=== PATIENT | female | born 1995 | race Caucasian/White ===

== ENCOUNTER → 2017-04-18 15:05 | Outpatient (CLI) | payer MEDICAID, SELFPAY ==
--- NOTE | 2017-04-18 15:09 | RAD_ITS ---
STUDY: X-RAY - LEFT FOOT CLINICAL: Fracture follow-up. TECHNIQUE: 3 view(s) of the foot. COMPARISON: Radiographs 01/24/2017. FINDINGS: Normal talus, calcaneus, and tarsal bones. Normal visualized subtalar, talonavicular, calcaneocuboid, tarsal and tarsometatarsal articulations. There is healed fracture deformity of the distal fifth metatarsal. Normal metatarsophalangeal joint of the great toe. Normal tibial and fibular sesamoid bones. Normal interphalangeal joint of the great toe. Normal phalanges of the great toe. Normal second through fifth metatarsophalangeal joints. Normal interphalangeal joints and phalanges of the lesser toes. The soft tissue structures are unremarkable. RAD/Foot min 3 Views IMPRESSION: Healed fracture deformity of the distal fifth metatarsal. Electronically Signed: Mahin Manrique MD at 15:53 EST Tel , Service support ,
== END ==
PROVIDERS: Visit Provider Orthopaedic Surgery
DX: S92.355D Nondisplaced fracture of fifth metatarsal bone, left foot, subsequent encounter for fracture with routine healing (principal); X58.XXXD Exposure to other specified factors, subsequent encounter
CPT/HCPCS: 73630

== ENCOUNTER 2018-01-31 00:13 | Emergency (ER) | payer MEDICAID, SELFPAY ==
[2018-01-31 00:14] VITALS: BP 111/69; PULSE 112; RESP 18; TEMP 36.8; O2SAT 99; BMI 34.0
--- NOTE | 2018-01-31 00:38 | RAD_ITS ---
STUDY: X-RAY CHEST REASON FOR EXAM: Female, 22 years old. Chest pain. TECHNIQUE: 2 views COMPARISON: None. FINDINGS: There is a right middle lobe consolidation consistent with a pneumonia. The left lung is clear. The heart is normal. There are no pleural effusions. Normal visualized thoracic spine. Normal visualized ribs, clavicles, and shoulders. There is no demonstrated abnormality of the visualized soft tissue structures of the upper abdomen. RAD/Chest PA and Lateral IMPRESSION: Right middle lobe pneumonia Electronically Signed: Lalo Jesus MD at 0:57 EST Tel , Service support ,
--- NOTE | 2018-01-31 00:38 | EKG12_ITS ---
Test Reason : CP Blood Pressure : / mmHG Vent. Rate : 111 BPM Atrial Rate : 111 BPM P-R Int : 132 ms QRS Dur : 088 ms QT Int : 332 ms P-R-T Axes : -02 -08 028 degrees QTc Int : 451 ms Sinus tachycardia Otherwise normal ECG Confirmed by MARILYN COLLAZO, MICA ([id number]), newspaper copy editor PATRIA PARRISH ([id number]) on 02/02/2018 2:29:33 PM Referred By: JASMIN Confirmed By:MICA SANDERS MD
[2018-01-31] MEDS: Ipratropium/Albuterol Sulfate 3 ML AMPUL.NEB INHALATION (01:11)
--- NOTE | 2018-01-31 01:13 | ED.DCSUM_ITS ---
- ER Visit Summary Date of Service: 01/31/18 Chief Complaint: Chest pain History of Present Illness: The patient is a 22 F who presents with chest pain. It is been present for about 1 week. She complains of pain across her chest but its worst on the right side. It is sharp. It is worse with inspiration or movement. She was recently ill with an upper respiratory type infection with congestion rhinorrhea shortness of breath and cough. No fevers. No vomiting. No recent travel surgery or immobilization. No history of DVT or pulmonary embolism. Physical Examination: Afebrile heart rate 112 vitals otherwise normal respiratory rate 18 pulse ox 99% on room air Moist mucous membranes Heart is regular rhythm slightly tachycardic Patient is in no respiratory distress able to speak in full sentences no retractions or increased work of breathing. She does have scattered expiratory wheezing. I do not appreciate rales Abdomen soft Extremities nontender Alert Test Results: EKG shows sinus tachycardia at a rate of 111. Two-view chest x- ray shows a right middle lobe pneumonia. Emergency Department Course and Treatment: Patient was given a DuoNeb aerosol and first dose of azithromycin here. She is afebrile blood pressure temperature and pulse oximetry are normal and she has no comorbidities. She is slightly tachycardic. I do not believe she requires hospital admission. She will be given prescriptions for azithromycin, albuterol inhaler, naproxen for pain. She understands to return for new or worsening symptoms and was instructed on specific signs and symptoms to monitor for. Treatment Plan: [] Disposition: Discharge Impression: Community acquired pneumonia This note was generated with [employer] dictation software. It may contain incorrect words, spelling, and punctuation that were not noted in review of the chart prior to signing ED Disposition - Plan for ED Patient: Chief Complaint: Chest Other Referrals: Care Physician,No Primary [Primary Care Provider] -
--- NOTE | 2018-01-31 01:13 | ED.DEP ---
ED Disposition - Plan for ED Patient: Chief Complaint: Chest Other Instructions: ED Pneumonia Adult Prescriptions: Albuterol Inhaler [Ventolin Hfa] 1 - 2 puff INHALATION Q4H PRN PRN #1 inhaler PRN Reason: Wheezing Azithromycin [Zithromax] 250 mg PO DAILY #4 tab Naproxen [Naprosyn] 500 mg PO BID #20 tab Referrals: Care Physician,No Primary [Primary Care Provider] - Rachelle Humphries DO [STAFF PHYSICIAN] -
[2018-01-31 01:14] VITALS: PULSE 104; RESP 18
[2018-01-31] MEDS: Azithromycin 250 MG Tablet 500 MG PO (01:21)
[2018-01-31 01:22] VITALS: PULSE 110; RESP 20; O2SAT 100
== END 2018-01-31 01:22 | disposition home or self-care (01) ==
PROVIDERS: Emergency Provider Emergency Medicine
DX: J18.9 Pneumonia, unspecified organism (principal); Z72.0 Tobacco use
CPT/HCPCS: 71046; 93005; 94640; 99283

== ENCOUNTER 2018-05-18 07:12 | Emergency (ER) | payer MEDICAID, SELFPAY ==
[2018-05-18 07:13] VITALS: BP 126/84; PULSE 91; RESP 16; TEMP 36.3; O2SAT 98; BMI 32.9
--- NOTE | 2018-05-18 07:32 | ED.DCSUM_ITS ---
- ER Visit Summary Date of Service: 05/18/18 Chief Complaint: Abdominal pain History of Present Illness: The patient is a 23 F with a 3-month history of intermittent upper abdominal pain. She states she wakes early in the morning with upper abdominal pain. She often will have nausea and vomiting of incomp letely digested food from the prior evening. She denies fever or chills. She denies diarrhea or constipation. She states she occasionally take Pepcid but not really sure if that helps or not. Patient just completed her menstrual cycle denies possibility of . Physical Examination: Vital signs unremarkable. Patient sitting upright in bed no acute distress. Head neck examination unremarkable. Heart is regular rate and rhythm. Lung sounds are clear. Abdomen is soft with tenderness in the epigastrium. No guarding or rebound. Active bowel sounds are noted. Test Results: CBC and chemistry studies normal. LFTs and lipase normal. Emergency Department Course and Treatment: Patient was given p.o. Protonix. Test results discussed with the patient. I suspect she has gastritis and reflux. She will be given a prescription for Prevacid. She is referred to Dr. Ramirez for follow-up, next on the no doc list. Treatment Plan: [] Disposition: Discharge Impression: Gastritis This note was generated with [employer] dictation software. It may contain incorrect words, spelling, and punctuation that were not noted in review of the chart prior to signing ED Disposition - Plan for ED Patient: Referrals: Care Physician,No Primary [Primary Care Provider] -
[2018-05-18] MEDS: Pantoprazole Sodium 20 MG Tablet PO (07:36)
[2018-05-18 08:03] LABS: Absolute Lymphocyte Count 2.23 X10^3/ul (0.83-4.51); Absolute Neutrophil Count 2.7 X10^3/uL (2.0-7.7); Basophil# 0.01 X10^3/uL; Basophil% 0.2 % (0-1); Eosinophil# 0.04 X10^3/uL; Eosinophils% 0.8 % (0-5); Hematocrit 39.1 % (37-47); Hemoglobin 13.6 g/dl (12.0-15.0); Lymphocyte # 2.23 X10^3/ul (4.0); Lymphocyte % 41.9 % (19-41); Mean Corp Hgb Conc 34.8 g/gl (32-36); Mean Corpuscular Hgb 31.6 pg (27.0-32.0); Mean Corpuscular Volume 90.7 fL (81-99); Mean Platelet Vol. 9.9 fl (6.2-12.0); Monocyte% 5.6 % (0-10); Neutrophil # 2.73 X10^3/uL (2.7-7.7); Neutrophil % 51.3 % (47-70); Platelet Count 265 K/mm3 (150-450); RBC Distribution Width CV 12.4 % (11.6-14.6); RBC Distribution Width SD 41.5 fl (35.1-43.9); Red Blood Count 4.31 M/mm3 (4.2-5.4); White Blood Count 5.3 K/mm3 (4.4-11.0)
[2018-05-18 08:04] LABS: POSITIVE COUNT NO; POSITIVE DIFFERENTIAL NO; POSITIVE MORPHOLOGY NO
[2018-05-18 08:16] LABS: AST(SGOT) 13 U/L (15-37); Alanine Aminotransfer ALT/SGPT 22 U/L (13-56); Albumin, Serum 3.7 g/dL (3.2-5.0); Alkaline Phosphatase 69 U/L (45-117); Anion Gap 8 (5-15); BUN 11 mg/dL (7-18); BUN/Creat Ratio 14.8 RATIO (10-20); Bilirubin, Direct 0.11 mg/dL (0.00-0.30); Calcium,Total 8.7 mg/dL (8.5-10.1); Chloride 106 mmol/L (98-107); Creatinine, Serum 0.74 mg/dL (0.55-1.02); EST Glomerular Filtration Rate 105 mL/min (>60); Est Glom Filt Rate - Afr Amer 127 mL/min (>60); Estimated Creatinine Clearance 108.21 ml/min; Glucose 99 mg/dL (74-106); Lipase 178 U/L (73-393); Potassium 3.5 mmol/L (3.5-5.1); Protein, Total 6.7 g/dL (6.4-8.2); Sodium Level 141 mmol/L (136-145)
--- NOTE | 2018-05-18 09:00 | ED.DEP ---
ED Disposition - Plan for ED Patient: Disposition: Home or Assisted Living Instructions: ED PUD Vs Gastritis Prescriptions: Lansoprazole [Prevacid] 30 mg PO DAILY #30 capsule Referrals: Terri Ramirez MD [COURTESY STAFF PHYSICIAN] - As Needed
== END 2018-05-18 09:39 | disposition home or self-care (01) ==
PROVIDERS: Emergency Provider Emergency Medicine
DX: K29.70 Gastritis, unspecified, without bleeding (principal); Z72.0 Tobacco use
CPT/HCPCS: 80048; 80076; 83690; 85025; 99282

== ENCOUNTER 2018-08-27 19:10 | Observation (INO) | payer MEDICAID, SELFPAY ==
[2018-08-27 19:11] VITALS: BP 125/75; PULSE 75; RESP 16; TEMP 36.8; O2SAT 99; BMI 29.2
--- NOTE | 2018-08-27 20:32 | US_ITS ---
STUDY: ABDOMINAL ULTRASOUND - RIGHT UPPER QUADRANT REASON FOR VISIT: Female, 23 years old. Right upper quadrant pain TECHNIQUE: Ultrasound evaluation of the right upper quadrant was performed with real-time and static chirinos-scale imaging. TECHNICAL QUALITY: Adequate. COMPARISON: None. FINDINGS: Liver: The liver measures 17 cm. There is normal echogenicity of the liver. The bile ducts are within normal limits. There is hepatic color flow. The direction of portal flow is hepatopetal. There is no demonstrated mass lesion. Gallbladder: The gallbladder contains gallstones. The gallbladder wall measures 3 mm. Trace pericholecystic fluid is present. Clancy's sign is reported as positive. Common Bile Duct (C.B.D.): The common bile duct measures 3 mm. Pancreas: Normal size of the head, body and tail of the pancreas. There is normal echogenicity of the pancreas. There is no demonstrated pancreatic mass or cyst. Right Kidney: Normal size of the right kidney. The right kidney measures 11 cm. Normal renal cortex. There is no demonstrated renal mass or cyst. There is no right hydronephrosis. US/Gallbladder IMPRESSION: Gallstones as well as trace pericholecystic fluid with reported positive Clancy's sign, although gallbladder wall thickness is normal. Findings could represent mild cholecystitis in appropriate clinical context. Clinical correlation is suggested. Electronically Signed: Ian Vitale, at 21:28 EDT Tel , Service support ,
[2018-08-27] MEDS: Ondansetron 4 MG/2 ML Vial IV (20:50)
[2018-08-27] MEDS: 0.9% Normal Saline 1,000 ML 125 ML IV (20:50)
[2018-08-27 21:00] LABS: Bacteria 0 SEEN /hpf (None Seen); Mucous, Urine 0 SEEN /hpf (<or=2+); Red Blood Cells-Urine 0 SEEN /hpf (0-5); White Blood Cells 0 SEEN /hpf (0-5)
[2018-08-27 21:05] LABS: Color, Urine Yellow (Yellow); Glucose, Dipstick Normal (Normal); Ketone-Dipstick Negative (Negative); Leukocyte Esterase-Dipstick Negative /ul (Negative); Nitrite-Dipstick Negative (Negative); Occult Blood-Urine Negative /ul (Negative); Protein-Dipstick Negative (Negative); Specific Gravity, Urine 1.015 (1.002-1.030); Urine Bilirubin Dipstick Negative (Negative); Urine Clarity Cloudy (Clear); Urine Urobilinogen Normal (Normal)
[2018-08-27 21:09] LABS: Absolute Neutrophil Count 5.7 X10^3/uL (2.0-7.7); Basophil# 0.03 X10^3/uL; Basophil% 0.3 % (0-1); Eosinophil# 0.09 X10^3/uL; Hematocrit 40.7 % (37-47); Hemoglobin 14.3 g/dl (12.0-15.0); Lymphocyte % 28.5 % (19-41); Mean Corp Hgb Conc 35.1 g/gl (32-36); Mean Corpuscular Hgb 32.1 pg (27.0-32.0); Mean Corpuscular Volume 91.5 fL (81-99); Mean Platelet Vol. 10.4 fl (6.2-12.0); Monocyte# 0.69 X10^3/uL; Monocyte% 7.6 % (0-10); Neutrophil % 62.5 % (47-70); Platelet Count 303 K/mm3 (150-450); RBC Distribution Width CV 12.5 % (11.6-14.6); RBC Distribution Width SD 42.1 fl (35.1-43.9); Red Blood Count 4.45 M/mm3 (4.2-5.4); White Blood Count 9.1 K/mm3 (4.4-11.0)
[2018-08-27 21:10] VITALS: BP 124/72; PULSE 76; RESP 19; O2SAT 98
[2018-08-27 21:11] LABS: POSITIVE COUNT NO; POSITIVE DIFFERENTIAL NO; POSITIVE MORPHOLOGY NO
[2018-08-27 21:14] LABS: Internal QC Validated? YES +Cl - CLEAR BKGD
[2018-08-27 21:15] LABS: Pregnancy, Serum, hCG Quali. NEGATIVE Negative
[2018-08-27 21:21] LABS: ALB/GLOB Ratio 1.4 RATIO (0.9-2.4); AST(SGOT) 7 U/L (15-37); Alanine Aminotransfer ALT/SGPT 17 U/L (13-56); Albumin, Serum 4.4 g/dL (3.2-5.0); Alkaline Phosphatase 68 U/L (45-117); Anion Gap 5 (5-15); BUN 14 mg/dL (7-18); BUN/Creat Ratio 11.8 RATIO (10-20); Calcium,Total 9.5 mg/dL (8.5-10.1); Chloride 104 mmol/L (98-107); Creatinine, Serum 1.19 mg/dL (0.55-1.02); EST Glomerular Filtration Rate 61 mL/min (>60); Est Glom Filt Rate - Afr Amer 73 mL/min (>60); Estimated Creatinine Clearance 64.58 ml/min; Globulin 3.2 g/dL (2.2-4.2); Glucose 105 mg/dL (74-106); Lipase 113 U/L (73-393); Potassium 3.8 mmol/L (3.5-5.1); Protein, Total 7.6 g/dL (6.4-8.2); Sodium Level 138 mmol/L (136-145)
[2018-08-27 21:31] LABS: Amorphous Sediment 3+ PHOS; Squamous Epithelial Cells - UA 0-5 SEEN /hpf (5-10)
[2018-08-27] MEDS: HYDROmorphone 1 MG/ML Syringe IV (22:23)
--- NOTE | 2018-08-27 22:25 | ED.DCSUM_ITS ---
- ER Visit Summary Date of Service: 08/27/18 Chief Complaint: [Abdominal pain] History of Present Illness: The patient is a 23 F [emergency room with abdominal pain that started initially about 7 months ago. States that the pains been off and on. Department about 2 months ago and had lab work-up and it was believed she may have GERD or peptic ulcer disease therefore was started on Prevacid. Patient states that despite the Prevacid she continued to have pain especially after eating. Patient describes the pain is right upper quadrant and radiating to her back. Patient's had intermittent nausea and vomiting associated with this. Patient denies any fevers. Patient has no medical history. Patient has no prior surgical history.] Physical Examination: [HEENT-PERRLA, EOMI. Cranial nerves II through XII grossly intact. TMs clear. Mucous membranes moist. No adenopathy. Cardiovascular-regular rate and rhythm without murmur or ectopy Lungs-clear to auscultation, chest wall stable without crepitus or subcu emphysema Abdomen-normoactive bowel sounds, soft. She has tenderness to palpation over the right upper quadrant with positive Clancy sign. There is no rebound, rigidity, cranial signs. Extremities-intact ?4, normal range of motion, normal pulses, atraumatic] Test Results: [CBC with differential obtained was unremarkable. Chemistries unremarkable. LFTs were normal. Urinalysis normal. hCG was negative. Gallbladder ultrasound obtained showed mild cholecystitis given that she had gallstones and trace pericholecystic fluid as well as a positive Clancy sign.] Emergency Department Course and Treatment: [The patient was given Zofran for nausea as she did not anything for pain however subsequently she developed worsening pain and was requesting pain medication. Patient was medicated with Dilaudid 1 mg IV. Patient case was discussed with general surgeon on-call for the [facility] as patient is a [facility] patient and would like to remain within the system. Dr. Virk will present to the ER to evaluate patient for admission and possible surgical intervention.] Treatment Plan: [Admit] Disposition: [Admit] Impression: [Abdominal pain Cholecystitis] This note was generated with [employer] software. It may contain incorrect words, spelling, and punctuation that were not noted in review of the chart prior to signing ED Disposition - Plan for ED Patient: Referrals: Care Physician,No Primary [Primary Care Provider] -
--- NOTE | 2018-08-27 22:46 | HP.PCM_ITS ---
History of Present Illness Date of Admission: 08/27/18 Chief Complaint: RUQ PAIN The patient is a 23 year old F with episodic RUQ pain since January. She presented 2 months prior, told likely PUD, started on PPI's no improvement. She ate a meatball sub Monday night and awoke at 2am with severe RUQ pain. Pain persisted. She presented to [facility] ER - U/s Cholelithiasis Past Medical History Allergies No Known Allergies Allergy (Verified 08/27/18 19:13) Home Medications: Ambulatory Orders Medication Instructions Recorded Lansoprazole [Prevacid] 30 mg PO DAILY #30 capsule 05/18/18 Surgical History: no surgical history Psychiatric History: No pertinent psych hx SCULPTURE INSTRUCTOR History: No pertinent SCULPTURE INSTRUCTOR history Smoking Status: Current every day smoker Alcohol: Occasional Review of Systems Constitutional: Denies: Chills, Fever, Weight Change HEENT: Denies: Head Aches, Sinus Congestion, Sinus Drainage Cardiovascular: Denies: Chest Pain, Palpitations Respiratory: Denies: Cough, Shortness of breath at rest, Sputum production Gastrointestinal: Reports: Abdominal Pain. Denies: Nausea, Vomiting Genitourinary: Denies: Dysuria Musculoskeletal: Denies: Joint Pain, Joint Tenderness Skin: Denies: Rash, Wounds Neurological: Denies: Numbness, Tingling, Focal weakness Psychiatric: Denies: Anxiety, Depression, Homicidal Ideations, Suicidal Ideations Hematologic/ Lymphatic: Denies: Easy Bruising, Easy Bleeding VTE Information - Inpt Only VTE Present on Admission: No VTE Mechan Device Prophylaxis: SCD's - Physical Exam General: Alert, Oriented x3, Cooperative HEENT: Atraumatic, PERRLA, EOMI, Normocephalic Neck: Supple, No JVD, Negative Carotid Bruits Lungs: Clear to auscultation, Normal air movement Cardiovascular: Regular rate, No murmurs Abdomen: Bowel Sounds Present, Soft, Tender - RUQ Extremities: No edema, Capillary Refill Less than 3 Seconds Skin: No rashes, No breakdown Musculoskeletal: No Tenderness to Palpation of Joints or Extremities Neurological: Cranial nerves II-XII grossly intact Psych/Mental Status: Normal Affect, Appropriate Vital Signs Temp Pulse Resp BP Pulse Ox 98.2 F 76 19 H 124/72 H 98 08/27/18 19:11 08/27/18 21:10 08/27/18 21:10 08/27/18 21:10 08/27/18 21:10 Oxygen Delivery Method Room Air Weight: 77.111 kg Body Mass Index (BMI) 29.2 Laboratory Tests Past 24 Hrs 08/27/18 08/27/18 08/27/18 20:50 20:50 20:50 WBC 9.1 RBC 4.45 Hgb 14.3 Hct 40.7 MCV 91.5 MCH 32.1 H MCHC 35.1 RDW 12.5 RDW Differential 42.1 Plt Count 303 MPV 10.4 Immature Gran % (Auto) 0.100 Neut % (Auto) 62.5 Lymph % (Auto) 28.5 [place] % (Auto) 7.6 Eos % (Auto) 1.0 Baso % (Auto) 0.3 Absolute Neuts (auto) 5.7 Absolute Lymphs (auto) 2.60 Total Counted Not Reportable Sodium 138 Potassium 3.8 Chloride 104 Carbon Dioxide 29.0 Anion Gap 5 BUN 14 Creatinine 1.19 H Estim Creat Clear Calc 64.58 Est GFR (MDRD) Af Amer 73 Est GFR (MDRD) Non-Af 61 BUN/Creatinine Ratio 11.8 Glucose 105 Calcium 9.5 Total Bilirubin 0.30 AST 7 L ALT 17 Alkaline Phosphatase 68 Total Protein 7.6 Albumin 4.4 Globulin 3.2 Albumin/Globulin Ratio 1.4 Lipase 113 Serum , Qual NEGATIVE Urine Color Urine Clarity Urine pH Ur Specific [place] Urine Protein Urine Glucose (UA) Urine Ketones Urine Occult Blood Urine Nitrite Urine Bilirubin Urine Urobilinogen Ur Leukocyte Esterase Urine RBC Urine WBC Ur Squamous Epith Cells Amorphous Sediment Urine Bacteria Urine Mucus 08/27/18 20:50 WBC RBC Hgb Hct MCV MCH MCHC RDW RDW Differential Plt Count MPV Immature Gran % (Auto) Neut % (Auto) Lymph % (Auto) [place] % (Auto) Eos % (Auto) Baso % (Auto) Absolute Neuts (auto) Absolute Lymphs (auto) Total Counted Sodium Potassium Chloride Carbon Dioxide Anion Gap BUN Creatinine Estim Creat Clear Calc Est GFR (MDRD) Af Amer Est GFR (MDRD) Non-Af BUN/Creatinine Ratio Glucose Calcium Total Bilirubin AST ALT Alkaline Phosphatase Total Protein Albumin Globulin Albumin/Globulin Ratio Lipase Serum , Qual Urine Color Yellow Urine Clarity Cloudy Urine pH 7.0 Ur Specific [place] 1.015 Urine Protein Negative Urine Glucose (UA) Normal Urine Ketones Negative Urine Occult Blood Negative Urine Nitrite Negative Urine Bilirubin Negative Urine Urobilinogen Normal Ur Leukocyte Esterase Negative Urine RBC 0 SEEN Urine WBC 0 SEEN Ur Squamous Epith Cells 0-5 SEEN Amorphous Sediment 3+ PHOS Urine Bacteria 0 SEEN Urine Mucus 0 SEEN Assessment/Plan All Active Problems (Last Reviewed 04/18/17 @ 15:07 by Jagruti Khoury) Nondisplaced fracture of fifth metatarsal bone, left foot, subsequent encounter for fracture with routine healing (Acute) Cholecystitis Admit patient for pain control Plan for laparoscopic cholecystectomy with intraoperative cholangiogram. The risks, benefits, possible complications and alternatives were discussed. The patient consents to planned surgical procedure.
[2018-08-27] MEDS: Morphine 4 MG/ML Syringe IV (23:42)
[2018-08-27] MEDS: Lactated Ringers 1,000 ML 70 ML IV (23:42)
[2018-08-27 23:46] VITALS: BMI 25.7
[2018-08-27 23:47] VITALS: BP 132/82; PULSE 55; RESP 18; TEMP 36.6; O2SAT 97
[2018-08-27 23:56] VITALS: BMI 25.7
[2018-08-28] VITALS (10 sets, daily range): BP systolic 96–123; BP diastolic 66–81; PULSE 58–84; RESP 14–18; TEMP 36.4–36.7; O2SAT 94–100; BMI 25.9
--- NOTE | 2018-08-28 | GALL_PTH ---
PATIENT: ORLIN ROSALES LOC: MS3 U#:[id number] AGE/SX: 23/F ROOM: MS322 RE08/27/[address]: Dr. Jony Fisher MD : 1995 BED: 1 DIS: 08/28/2018 SPEC #: [id number] RECD: 08/28/18 13:59 STATUS: ALFONZO REStefani #: [id number] DREW: 08/28/18 00:[address]: Jony Fisher DEPT: SURGICAL PATHOLOGY RECD BY: Jimenez Alfaro ENTERED: 08/28/18 13:59 SP TYPE: KHADIJAH BLANTON DR: No Primary Care Phys Tissues: Gallbladder, NOS Procedures: Surgery Specimen Level III HEADER OPERATION: Laparoscopic cholecystectomy with IOC PRE-OP DIAGNOSIS: Cholecystitis TISSUE SUBMITTED: Gallbladder MICROSCOPIC DIAGNOSIS Gallbladder, cholecystectomy: Chronic cholecystitis and cholelithiasis. AM:tolu 08/29/18 MICROSCOPIC DESCRIPTION Slides are reviewed. GROSS DESCRIPTION Received is one container labeled with the patient's name and designated gallbladder. The specimen consists of a gallbladder measuring 10.5 x 3.5 x 2 cm. The external surface is smooth and glistening. Focally, it is granular, hemorrhagic and contains cautery artifact. The lumen of the gallbladder contains yellow-green mucoid bile and multiple yellow mulberry-shaped calculi averaging 7 mm each. The mucosa is reddish-oscar in color. The gallbladder wall averages 0.5 cm in thickness and is free of mass lesions. Wire Border Assembler sections of the gallbladder and the cystic duct are submitted in one cassette. / AM:tolu 08/28/18 TC:3 CPT: 70681
[2018-08-28] MEDS: Morphine 4 MG/ML Syringe IV ×2 (02:34→08:48)
[2018-08-28] MEDS: oxyCODONE 5 MG Tablet PO ×2 (03:02→13:59)
--- NOTE | 2018-08-28 05:00 | EKG12_ITS ---
Test Reason : AM EKG Blood Pressure : / mmHG Vent. Rate : 054 BPM Atrial Rate : 054 BPM P-R Int : 122 ms QRS Dur : 092 ms QT Int : 400 ms P-R-T Axes : -05 006 017 degrees QTc Int : 379 ms Sinus bradycardia Nonspecific T wave abnormality Poor R- wave progression Abnormal ECG Confirmed by TRINA COLLAZO, RYAN ([id number]), editorial specialist VIRGIL QUINTERO ([id number]) on 08/29/2018 12:43:01 PM Referred By: Jony Fisher Confirmed By:RYAN MENA MD
[2018-08-28 06:28] LABS: Absolute Lymphocyte Count 2.54 X10^3/ul (0.83-4.51); Absolute Neutrophil Count 4.1 X10^3/uL (2.0-7.7); Basophil# 0.02 X10^3/uL; Basophil% 0.3 % (0-1); Eosinophils% 1.4 % (0-5); Hematocrit 37.2 % (37-47); Hemoglobin 12.9 g/dl (12.0-15.0); Lymphocyte # 2.54 X10^3/ul (4.0); Lymphocyte % 34.8 % (19-41); Mean Corp Hgb Conc 34.7 g/gl (32-36); Mean Corpuscular Hgb 31.5 pg (27.0-32.0); Mean Platelet Vol. 10.3 fl (6.2-12.0); Monocyte# 0.53 X10^3/uL; Monocyte% 7.3 % (0-10); Neutrophil # 4.09 X10^3/uL (2.7-7.7); Neutrophil % 56.1 % (47-70); Platelet Count 242 K/mm3 (150-450); RBC Distribution Width CV 12.3 % (11.6-14.6); RBC Distribution Width SD 40.5 fl (35.1-43.9); Red Blood Count 4.09 M/mm3 (4.2-5.4); White Blood Count 7.3 K/mm3 (4.4-11.0)
[2018-08-28 06:30] LABS: POSITIVE COUNT NO; POSITIVE DIFFERENTIAL NO; POSITIVE MORPHOLOGY NO
--- NOTE | 2018-08-28 06:30 | RAD_ITS ---
STUDY: INTRAOPERATIVE CHOLANGIOGRAM. REASON FOR EXAM: Female, 23 years old. Cholecystitis. FLUOROSCOPY TIME (if supplied): (0:13) minutes/seconds. Intraoperative cine loop was submitted. TECHNIQUE: An intraoperative cholangiogram was performed by the surgeon. Imaging was submitted. COMPARISON: None. FINDINGS: The common bile duct is not dilated. No intraluminal filling defect is seen. There is free flow of contrast into the duodenum. RAD/Cholangiogram/ O R,Initial IMPRESSION: Unremarkable intraoperative cholangiogram. Electronically Signed: dA De La Rosa, at 15:26 EDT , Service support ,
[2018-08-28 06:51] LABS: AST(SGOT) 10 U/L (15-37); Alanine Aminotransfer ALT/SGPT 15 U/L (13-56); Albumin, Serum 3.5 g/dL (3.2-5.0); Alkaline Phosphatase 55 U/L (45-117); Bilirubin, Direct 0.09 mg/dL (0.00-0.30); Globulin 2.5 g/dL (2.2-4.2)
[2018-08-28] MEDS: Lactated Ringers 1,000 ML 70 ML IV (08:48)
[2018-08-28] MEDS: 0.9% NaCl Peripheral Flush Adult/Peds IV (08:48)
[2018-08-28] MEDS: Cefazolin 2 GM in 0.9% Normal Saline 100 ML IV (10:43)
[2018-08-28] MEDS: Bupivacaine Mpf 0.5% 30 ML VIAL (11:50)
--- NOTE | 2018-08-28 11:52 | DCINST_ITS ---
Discharge Diet: Light diet - advance as tolerated Discharge Activity: May Not Drive - for 2-3 days or while taking narcotic pain medications., - - Do not drive, work heavy equipment or sign legal documents for 24 hours. May shower in (days): 1 - with the bandage in place. Additional Activity Instructions:: Pain medication may cause nausea. You should typically eat light foods as you take your pain medications. Pain medication may also cause constipation. If this is a problem for you, please discuss with your doctor. Call your doctor if your incision/area has: Continuous Slow Oozing, Sudden Increased Bleeding, Increased Pain/ Swelling, Increased Redness, Foul Smelling Discharge Call your doctor if you observe: Fever of 101 or Higher Suture Line Care: Avoid Pulling/Pushing, Avoid Pinching/Bending Additional Dressing/Incision Instructions:: Leave operative bandaids on for 2 days. When you remove dressing, leave Steri-Strips on until your follow-up appointment, or until the Steri-Strips fall off on their own. Allergies/Adverse Reactions: Allergies No Known Allergies Allergy (Verified 08/27/18 19:13) Medications to take at Discharge Ranitidine [Zantac] 150 mg PO BID 08/27/18 Primary Care Physician: Care Physician,No Primary [Primary Care Provider] - Test Results: Test results from this visit will be discussed in further detail at your follow- up appointment, if applicable. Please Follow Up With: Jony Fisher MD - Please call [phone] to schedule an appointment. When: 7 days after your surgery
--- NOTE | 2018-08-28 11:53 | PCM.OPRPT ---
Report of Operation Date of Procedure: 08/28/18 Pre-Operative Diagnosis: cholecystitis Post-Operative Diagnosis: acute cholecystitis, normal IOC Surgery/Procedure Performed:: laparoscopic cholecystectomy with intraoperative cholangiogram roll up guider operator: Angie Bronson Type of Anesthesia:: General Anesthesiologist: Joshua Childers Specimen's removed: gallbladder Estimated Blood Loss (mL): 10 Fluids Replaced: 500 Description of Procedure: The patient was brought to the operating suite. Sign in was performed verifying patient, site, position, SCIP antibiotic prophylaxis- 2 gm of Ancef and DVT prophylaxis with SCDs. Following induction of general anesthetic. The patient?s abdomen was prepped and draped in the usual fashion. Timeout was performed verifying patient, site, position. Local anesthetic was injected below the umbilicus. Incision made and dissection carried down to the umbilical root fascia. 2 stay sutures were placed. Incision made in the fascia, the peritoneum entered under direct visualization. A 10 mm Bateman trocar was inserted and secured with the stay sutures. Pneumoperitoneum to 15 mmHg was insufflated. Visual inspection revealed I significantly distended edematous gallbladder. 3 right upper quadrant 5 ports were placed in the standard position. gallbladder was finally grasped easily so an aspirating needle used to aspirate the gallbladder partially to allow this to be grasped. The gallbladder was grasped retracted upward and outward. Dissection was carried out in Calot?s triangle. When a critical view of the neck of the gallbladder funneling of the cystic duct with no signs of aberrant ductal structures were seen, a clip was placed on the neck of the gallbladder cystic duct junction. A partial ductotomy was made. A Cholangiocath was inserted into the duct and secured with a clip. Intraoperative cholangiogram was performed demonstrating filling of the cystic duct filling the common bile duct and emptying into the duodenum without signs of obstruction area and the clip and catheter were removed. 2 clips placed on the cystic duct and the cystic duct divided. Dissection was continued until the cystic artery was clearly dissected and identified. The artery was then doubly clipped proximally singly clipped distally and divided. The gallbladder was then dissected free from the gallbladder fossa using electrocautery. The gallbladder was placed in an Endobag and removed through the umbilical port site. An 0 PDS [id number] suture was placed around the umbilical port site defect. Pneumoperitoneum was reestablished. The gallbladder fossa was checked for hemostasis. With good hemostasis, the area was irrigated and aspirated to clear. 5mm ports were removed under direct visualization with no signs of bleeding. Pneumoperitoneum was released. The Bateman trocar was removed. The umbilical fascial suture was secured area did skin was closed with interrupted 4-0 Monocryl subcuticular sutures. Steri-Strips and bandages were applied. The patient was brought to recovery room in stable condition. - Admit VTE Documentation VTE Present on Admission: No VTE Mechan Device Prophylaxis: SCD's VTE Pharm Prophylaxis ordered?: No
== END 2018-08-28 17:00 | disposition home or self-care (01) ==
LOC: ED 22:20 → MS3 23:17
PROVIDERS: Admitting Provider Surgery; Emergency Provider Emergency Medicine; Referring Provider Surgery; Visit Provider Surgery
PROC: (CPT 47610; principal; 2018-08-28 10:10)
DX: K80.12 Calculus of gallbladder with acute and chronic cholecystitis without obstruction (principal); F17.200 Nicotine dependence, unspecified, uncomplicated; R94.31 Abnormal electrocardiogram [ECG] [EKG]; R00.1 Bradycardia, unspecified
CPT/HCPCS: 47563; 36415; 74300; 76000; 76705; 80053; 80076; 81001; 83690; 84703; 85025; 88304; 93005; 96361; 96374; 96375; 96376; 99218; 99284; 99406; J7030; J7120; A4216; G0378; J2405

== ENCOUNTER 2018-11-20 20:08 | Emergency (ER) | payer MEDICAID, SELFPAY ==
[2018-08-28 08:52] VITALS: BMI 25.9
[2018-11-20 20:14] VITALS: BP 99/80; PULSE 108; RESP 16; TEMP 36.4; O2SAT 100; BMI 30.4
[2018-11-20] MEDS: Ondansetron 4 MG/2 ML Vial IV (20:37)
[2018-11-20 20:46] VITALS: BP 109/71; PULSE 103; RESP 21; O2SAT 100
[2018-11-20] MEDS: proMETHazine 25 MG/ML Syringe 12.5 MG IV (23:02)
[2018-11-20 23:03] VITALS: BP 103/72; PULSE 70; RESP 14; O2SAT 99
--- NOTE | 2018-11-20 23:24 | ED.DCSUM_ITS ---
- ER Visit Summary Date of Service: 11/20/18 Chief Complaint: [Heroin overdose ] History of Present Illness: The patient is a 23 F [presents to the emergency department with EMS after overdosing on heroin. EMS noted that police on scene and found patient unresponsive and administered multiple doses of intranasal Narcan. On EMS arrival they were able to establish an IV and gave 1 more milligram of Narcan IV. On arrival to the emergency department patient admits to using heroin that she snorted. Patient states she is not a regular user. Patient does have history of illicit drug use in the past including marijuana and methamphetamines. She denies feeling suicidal or homicidal. She denies any hallucinations. She denies chest pain or shortness of breath. She does describe some nausea and did vomit on arrival the emergency department.] Physical Examination: [HEENT-PERRLA, EOMI. Cranial nerves II through XII grossly intact. TMs clear. Mucous membranes moist. No adenopathy. Cardiovascular-regular rate and rhythm without murmur or ectopy Lungs-clear to auscultation, chest wall stable without crepitus or subcu emphysema Abdomen-normoactive bowel sounds, soft, nontender, no rebound or rigidity, no peritoneal signs. Extremities-intact ?4, normal range of motion, normal pulses, atraumatic] Test Results: [Urine drug screen ordered however patient was unable to give a urine after several hours in the emergency department.] Emergency Department Course and Treatment: [After approximately 3 hours in the department patient had been monitored and observed and had no further respiratory depression. This point she feels back to her baseline. Patient was given information for drug treatment program at 180.] Treatment Plan: [Patient advised to discontinue drug use.] Disposition: [Discharged home stable condition.] Impression: [Heroin overdose] This note was generated with [employer] dictation software. It may contain incorrect words, spelling, and punctuation that were not noted in review of the chart prior to signing ED Disposition - Plan for ED Patient: Referrals: Care Physician,No Primary [Primary Care Provider] -
--- NOTE | 2018-11-20 23:29 | ED.DEP ---
ED Disposition - Plan for ED Patient: Instructions: Opiate Abuse, OVERDOSE, Opiate Referrals: Care Physician,No Primary [Primary Care Provider] - Luis E Hurtado MD [STAFF PHYSICIAN] - 3-5 Days
[2018-11-20 23:45] VITALS: BP 97/67; PULSE 87; RESP 16; O2SAT 100
== END 2018-11-20 23:46 | disposition home or self-care (01) ==
LOC: ED 20:34
PROVIDERS: Emergency Provider Emergency Medicine
DX: T40.1X1A Poisoning by heroin, accidental (unintentional), initial encounter (principal); Y92.9 Unspecified place or not applicable; Z72.0 Tobacco use
CPT/HCPCS: 96374; 96375; 99284; J7030; A4216; J2405

== ENCOUNTER 2018-12-26 22:56 | Emergency (ER) | payer MEDICAID, SELFPAY ==
[2018-12-26 22:57] VITALS: BP 99/86; PULSE 100; RESP 13; TEMP 36.6; O2SAT 95; BMI 31.6
--- NOTE | 2018-12-26 23:43 | ED.DCSUM_ITS ---
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 The details of events prior to hospital arrival and timing of drug ingestion are unknown. Initially patient is laughing and singing, grossly intoxicated. However upon initial evaluation she is crying and asking for her friend Darcy who is not present right now, stating that she refuses to talk to me until Darcy is here. 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 Denies: Abdominal pain Musculoskeletal: Denies: Neck pain, Back pain, Extremity Pain Skin: Denies: Rash, Abscess Neurological: Denies: Headache Psych: Reports: Anxiety Physical Exam Vital Signs/Narrative: Vital Signs Temp Pulse Resp BP Pulse Ox 12/26/18 22:57 97.8 F 100 13 99/86 H 95 Inital Vital Signs reviewed: Yes General: Well nourished, Well developed, Acute Distress - emotional Head: Normocephalic, Atraumatic Eyes: Perrl, EOMI - grossly; not following all commands ENT: Moist mucous membranes, No rhinorrhea, TM's clear, - - No hemotympanum, tavarez sign, CSF otorhinorrhea, signs of facial or other head trauma. Negative for: Sinus tenderness Cardiovascular: Regular rate, Regular rhythm, No murmurs Respiratory: No distress, CTA bilaterally, Chest nontender Abdomen: Soft, Nontender, Nondistended, Normal bowel sounds Back: Nontender Extremities: Nontender, No edema Skin: Normal color - Except for green discoloration of her chest and shoulders, her hair is dyed green and is long lying on these areas., No rash, No Trauma Neurological: Alert, Oriented x3 - knows she is in ER and knows her name; won't answer other questions at this time, Cranial nerves II-XII grossly intact, Normal Strength, Normal Sensation, - - able to walk, but intoxicated Psychological: Tearful, Agitated - occasionally walking to door, trying to leave and find Darcy Diagnostic/Tx/Re-eval Impressions Brain CT 12/27/18 00:05 IMPRESSION: There is mucoperiosteal inflammatory disease of the paranasal sinuses consistent with moderate chronic sinusitis. Electronically Signed: Fransico Garrison, at 1:52 EDT Tel , Service support , 12/27/18 00:05 CT Head [Brain/Head without Contrast] [CT] Stat Laboratory Results 12/26/18 12/26/18 12/27/18 23:10 23:10 01:00 WBC 6.2 RBC 4.27 Hgb 13.3 Hct 39.3 MCV 92.0 MCH 31.1 MCHC 33.8 RDW Std Deviation 41.7 RDW Coeff of Aly 12.4 Plt Count 253 MPV 9.9 Immature Gran % (Auto) 0.300 Neut % (Auto) 61.5 Lymph % (Auto) 31.6 Ware % (Auto) 3.2 Eos % (Auto) 2.6 Baso % (Auto) 0.8 Absolute Neuts (auto) 3.8 Absolute Lymphs (auto) 1.96 Nucleated RBC % 0 Sodium Potassium Chloride Carbon Dioxide Anion Gap BUN Creatinine Estim Creat Clear Calc Est GFR (MDRD) Af Amer Est GFR (MDRD) Non-Af BUN/Creatinine Ratio Glucose Calcium Urine Color Straw Urine Clarity Clear Urine pH 7.0 Ur Specific Hamlin 1.010 Urine Protein Negative Urine Glucose (UA) Normal Urine Ketones Negative Urine Occult Blood Negative Urine Nitrite Negative Urine Bilirubin Negative Urine Urobilinogen Normal Ur Leukocyte Esterase Negative Urine RBC 0 SEEN Urine WBC 0 SEEN Ur Squamous Epith Cells 0-5 SEEN Urine Bacteria 0 SEEN Urine Mucus 0 SEEN Urine Test Negative Ethyl Alcohol 12/27/18 12/27/18 01:00 01:00 WBC RBC Hgb Hct MCV MCH MCHC RDW Std Deviation RDW Coeff of Aly Plt Count MPV Immature Gran % (Auto) Neut % (Auto) Lymph % (Auto) Ware % (Auto) Eos % (Auto) Baso % (Auto) Absolute Neuts (auto) Absolute Lymphs (auto) Nucleated RBC % Sodium 147 H Potassium 3.8 Chloride 115 H Carbon Dioxide 23.0 Anion Gap 9 BUN 5 L Creatinine 0.67 Estim Creat Clear Calc 109.87 Est GFR (MDRD) Af Amer 143 Est GFR (MDRD) Non-Af 118 BUN/Creatinine Ratio 7.5 L Glucose 89 Calcium 8.9 Urine Color Urine Clarity Urine pH Ur Specific Hamlin Urine Protein Urine Glucose (UA) Urine Ketones Urine Occult Blood Urine Nitrite Urine Bilirubin Urine Urobilinogen Ur Leukocyte Esterase Urine RBC Urine WBC Ur Squamous Epith Cells Urine Bacteria Urine Mucus Urine Test Ethyl Alcohol 190.0 - Medical Decision Making Initially patient was able to be redirected and stay in bed, but then she got up and ran out of the room down the hallway and had to be physically restrained by security, with nursing assistance was brought back to the room, yelling screaming, swinging at nurses and security. Therefore to protect staff, she was restrained. As we were physically restraining her, she continued to spit, attempt to bite nursing, and swing at them. For this reason she was given Geodon 20 mg for her own and staff protection. I suspect the patient is just extremely intoxicated. There are no signs of head trauma. Since we will be unable to safely monitor her clinical condition to resolution if she is just intoxicated, because we are having to sedate her, other testing will be obtained in order to rule out acute life-threatening pathology. Patient was given Geodon, as above. Initially it did not think she continued screaming at staff directly, screaming out loud in general, and being generally agitated so we left her restrained. Eventually she settled down, she was acting much more reasonable with staff, so we gave her a trial out of restraints and she actually did very well and then continued to sleep. Several family members called. Her mother, asked about her, but did not want to come get her. Her sister called and wanted to come get her, we told her that she could at one point but she never showed up. A gentleman who claimed to be her cousin came and spoke with her for a little while, advised staff that he would come back in the morning to pick her up if that was okay. Plan is to observe her. Work-up was unremarkable and her alcohol is 190. She is a little hyponatremic, probably indicating that she could use some fluids from being intoxicated and vomiting. Patient was observed and did well. The gentleman did come to pick her up, however I was performing suturing with another patient and was unavailable when he arrived. When I finished, I was advised by nursing that they refused to wait for me and left together. She was oriented and no longer confused, ambulatory without ataxia. I certainly would have discharged her after evaluating her and finding the same clinical condition/improvement. It is notable that she left without her discharge papers, which would have provided follow-up information for addiction treatment and information on drug abuse. ED Disposition - Plan for ED Patient: Disposition: Home or Assisted Living Diagnosis: Alcohol intoxication delirium, acute, hyperactive, Heroin abuse Instructions: Understanding Heroin Abuse and Addiction, Alcohol Intoxication Referrals: Joy Maldonado [NON-STAFF] - [employer] [STAFF PHYSICIAN] -
[2018-12-26 23:51] LABS: Bacteria 0 SEEN /hpf (None Seen); Mucous, Urine 0 SEEN /hpf (<or=2+); Red Blood Cells-Urine 0 SEEN /hpf (0-5); White Blood Cells 0 SEEN /hpf (0-5)
[2018-12-26 23:53] LABS: Color, Urine Straw (Yellow); Glucose, Dipstick Normal (Normal); Ketone-Dipstick Negative (Negative); Leukocyte Esterase-Dipstick Negative /ul (Negative); Nitrite-Dipstick Negative (Negative); Occult Blood-Urine Negative /ul (Negative); Protein-Dipstick Negative (Negative); Urine Bilirubin Dipstick Negative (Negative); Urine Clarity Clear (Clear); Urine Urobilinogen Normal (Normal)
--- NOTE | 2018-12-26 23:53 | ED.RN ---
pt started getting dressed saying she was going home. RN entered room and asked pt to get into gown. PT refused and then started calling this RN a pedophile. PT eventually put gown on. PT can go home if she has a sober ride but she is unable to think of any phone numbers.
[2018-12-26 23:56] LABS: Internal QC Validated? YES +Cl - CLEAR BKGD; Pregnancy, Urine Negative Negative
--- NOTE | 2018-12-27 00:03 | ED.RN ---
CALLED MOTHER OF PT AT THE REQUEST OF THE PT, MOTHER DOES NOT WISH TO COME IN TO GET HER.
--- NOTE | 2018-12-27 00:04 | ED.RN ---
ATTEMPTED TO CALL A NUMBER FOR SISTER CANDIDO, , LEFT MESSAGE TO CALL THIS RN AT [facility], NO OTHER DETAILS GIVEN.
[2018-12-27] MEDS: Ziprasidone IM 20 MG/ML VIAL IM (00:05)
--- NOTE | 2018-12-27 00:05 | CT_ITS ---
STUDY: CT BRAIN WITHOUT CONTRAST REASON FOR EXAM: Female, 23 years old. Confusion RADIATION DOSAGE (If Supplied By Facility): CTDIvol = ( 44.99 ) mGy, DLP = ( 745.49 ) mGycm TECHNIQUE: Transaxial CT imaging of the brain was performed without administration of intravenous contrast material. Individualized dose optimization techniques were used for this CT. COMPARISON: No relevant priors. FINDINGS: Normal soft tissue structures. Normal calvarium. Normal size ventricles and extra-axial spaces for the patient's age. Normal white matter tracts of the cerebral hemispheres. Normal basal ganglia and thalami. Normal brainstem. Normal cerebellum. There is no intracranial hemorrhage. There are no findings of an acute ischemic infarction. There is mucoperiosteal inflammatory disease of the paranasal sinuses consistent with moderate chronic sinusitis. CT/Brain/Head without Contrast IMPRESSION: There is mucoperiosteal inflammatory disease of the paranasal sinuses consistent with moderate chronic sinusitis. Electronically Signed: Fransico Garrison, at 1:52 EDT Tel , Service support ,
[2018-12-27 00:08] LABS: Squamous Epithelial Cells - UA 0-5 SEEN /hpf (5-10)
[2018-12-27 00:18] VITALS: BP 108/89; PULSE 115; RESP 22; O2SAT 100
--- NOTE | 2018-12-27 00:19 | ED.RN ---
pt continues to scream in room. Attempted to redirect pt, unable. PTs sister Darcy is on her way here for sober ride home. We will reevaluate patients mental status when sister arrives.
--- NOTE | 2018-12-27 00:31 | ED.RN ---
2350 pt left room and was trying to leave. PT stopped around bed 17. Security Lam, myself and Rayshawn attempted de-escalation, redirection and emotional support but PT was continuing to verbally escalate, using obscenities, threatening harm toward staff. PT was brought back to her room and placed in 4-point restraints with MD at bedside. Geodon was ordered and given. PT kicking and attempted to bite this RN.
[2018-12-27 01:08] LABS: Absolute Lymphocyte Count 1.96 X10^3/uL (0.83-4.51); Absolute Neutrophil Count 3.8 X10^3/uL (2.0-7.7); Basophil# 0.05 X10^3/uL; Basophil% 0.8 % (0-1); Eosinophil# 0.16 X10^3/uL; Eosinophils% 2.6 % (0-5); Hematocrit 39.3 % (37-47); Hemoglobin 13.3 g/dL (12.0-15.0); Lymphocyte # 1.96 X10^3/ul (4.0); Lymphocyte % 31.6 % (19-41); Mean Corp Hgb Conc 33.8 g/dL (32-36); Mean Corpuscular Hgb 31.1 pg (27.0-32.0); Mean Platelet Vol. 9.9 fl (6.2-12.0); Monocyte% 3.2 % (0-10); NRBC Flagged by Analyzer 0 % (0-5); Neutrophil # 3.82 X10^3/uL (2.7-7.7); Neutrophil % 61.5 % (47-70); Platelet Count 253 K/mm3 (150-450); RBC Distribution Width CV 12.4 % (11.6-14.6); RBC Distribution Width SD 41.7 fl (35.1-43.9); Red Blood Count 4.27 M/mm3 (4.2-5.4); White Blood Count 6.2 K/mm3 (4.4-11.0)
[2018-12-27 01:12] VITALS: BP 104/73; PULSE 103; RESP 20; O2SAT 96
[2018-12-27 01:22] LABS: Anion Gap 9 (5-15); BUN 5 mg/dL (7-18); BUN/Creat Ratio 7.5 RATIO (10-20); Calcium,Total 8.9 mg/dL (8.5-10.1); Chloride 115 mmol/L (98-107); Creatinine, Serum 0.67 mg/dL (0.55-1.02); EST Glomerular Filtration Rate 118 mL/min (>60); Est Glom Filt Rate - Afr Amer 143 mL/min (>60); Estimated Creatinine Clearance 109.87 ml/min; Glucose 89 mg/dL (74-106); Potassium 3.8 mmol/L (3.5-5.1); Sodium Level 147 mmol/L (136-145)
[2018-12-27 02:47] VITALS: RESP 16
[2018-12-27 03:22] VITALS: PULSE 18
--- NOTE | 2018-12-27 04:20 | ED.RN ---
patients friend at the bedside to pickup driver patient at this time. Dr. Allen at this time would like to re eval patient at this time. Patient and friend do not want to stay any longer. Patient able to walk under own free while and able to answer questions at this time. Patient at this time left under own free while unwilling to wait any longer
== END 2018-12-27 04:20 | disposition home or self-care (01) ==
PROVIDERS: Emergency Provider Emergency Medicine
DX: F10.121 Alcohol abuse with intoxication delirium (principal); Y90.9 Presence of alcohol in blood, level not specified; F11.129 Opioid abuse with intoxication, unspecified; J32.9 Chronic sinusitis, unspecified; F17.200 Nicotine dependence, unspecified, uncomplicated
CPT/HCPCS: 36415; 70450; 80048; 80320; 81001; 81025; 85025; 96372; 99284; G0480; J3486

== ENCOUNTER → 2019-06-17 | Outpatient (CLI) | payer MEDICAID, SELFPAY ==
[2019-06-17 20:18] LABS: Chlamydia Trachomatis by PCR Negative (Negative); Neisserai gonorrhoeae by PCR Negative (Negative); Probe Check PASS; Sample Adequacy Control PASS; Specimen Processing Control PASS
== END | disposition home or self-care (01) ==
PROVIDERS: Visit Provider Obstetrics & Gynecology
DX: Z12.4 Encounter for screening for malignant neoplasm of cervix (principal); Z11.3 Encounter for screening for infections with a predominantly sexual mode of transmission
CPT/HCPCS: 87491; 87591; 88175; G0145

== ENCOUNTER → 2019-06-27 15:47 | Outpatient (CLI) | payer MEDICAID, SELFPAY ==
[2019-06-27 16:06] LABS: Color, Urine Yellow (Yellow); Glucose, Dipstick Normal (Normal); Ketone-Dipstick Negative (Negative); Leukocyte Esterase-Dipstick Negative /ul (Negative); Nitrite-Dipstick Negative (Negative); Occult Blood-Urine Negative /ul (Negative); Protein-Dipstick Negative (Negative); Specific Gravity, Urine 1.015 (1.002-1.030); Urine Bilirubin Dipstick Negative (Negative); Urine Clarity Clear (Clear); Urine Urobilinogen Normal (Normal)
[2019-06-27 16:07] LABS: Absolute Neutrophil Count 5.2 X10^3/uL (2.0-7.7); Basophil# 0.05 X10^3/uL; Basophil% 0.7 % (0-1); Eosinophil# 0.03 X10^3/uL; Eosinophils% 0.4 % (0-5); Hematocrit 37.1 % (37-47); Hemoglobin 12.2 g/dL (12.0-15.0); Lymphocyte % 20.7 % (19-41); Mean Corp Hgb Conc 32.9 g/dL (32-36); Mean Corpuscular Hgb 31.2 pg (27.0-32.0); Mean Corpuscular Volume 94.9 fL (81-99); Monocyte# 0.48 X10^3/uL; Monocyte% 6.6 % (0-10); NRBC Flagged by Analyzer 0 % (0-5); Neutrophil # 5.18 X10^3/uL (2.7-7.7); Neutrophil % 71.5 % (47-70); Platelet Count 253 K/mm3 (150-450); RBC Distribution Width SD 44.5 fl (35.1-43.9); Red Blood Count 3.91 M/mm3 (4.2-5.4); White Blood Count 7.3 K/mm3 (4.4-11.0)
[2019-06-27 16:29] LABS: COTININE Drug Screen Positive (<200 ng/mL)
[2019-06-27 16:37] LABS: Amphetamine Urine VISTA POSITIVE (<1000 ng/mL); Barbiturate Urine VISTA NEGATIVE (< 200 ng/mL); Benzodiazepine Urine VISTA NEGATIVE (< 200 ng/mL); Cocaine Urine VISTA NEGATIVE (< 300 ng/mL); Ecstacy Urine VISTA NEGATIVE (< 500 ng/mL); Methadone Urine VISTA NEGATIVE (< 300 ng/mL); PCP Urine VISTA NEGATIVE (< 25 ng/mL); THC Urine VISTA POSITIVE (< 50 ng/mL); Vista UDS pH Range 5
[2019-06-27 16:41] LABS: Thyroid Stim Hormone (TSH) 0.24 uIU/mL (0.358-3.74)
[2019-06-28 08:42] LABS: HIV - WCH Non-Reactive (Nonreactive); Hepatitis B Surface Antigen Non-Reactive (Nonreactive); Hepatitis C Antibody Non-Reactive (Nonreactive); Rubella IgG 115.5 IU/mL
[2019-07-04 08:04] LABS: Prenatal RPR NONREACTIVE (NONREACTIVE)
== END ==
PROVIDERS: Visit Provider Obstetrics & Gynecology
DX: Z34.81 Encounter for supervision of other normal pregnancy, first trimester (principal)
CPT/HCPCS: 36415; 80307; 81002; 84443; 85025; 86703; 86762; 86803; 87340

== ENCOUNTER 2019-07-30 06:27 | Day surgery (SDC) | payer MEDICAID, SELFPAY ==
--- NOTE | 2019-07-29 17:37 | HP.PCM_ITS ---
- Problem List (1) Missed Status: Acute History and Physical Date of Admission: 07/30/19 Date: 07/29/2019 Name: ORLIN ROSALES Age: 24 Date of : 1995 Surgical History and Physical Date: 07/29/2019 Name: ORLIN ROSALES Age: 24 Date of : 1995 Orlin Rosales, a 24 year old female 0 0 0 0 0, presents for Suction dilation and curettage on Tuesday, July 30, 2019. -- 24 y.o. G 1 P 0 scheduled for suction dilation and curettage for missed . ANURADHA 01/30/20 and when she presented for US on 07/24 and 07/25 there was no FHR and CRL c/w 11w size. shm MEDICATIONS HISTORY: ALLERGIES: No Known Allergies Infections - Chicken pox Illnesses - Anxiety/Depression, Drug dependence - Methamphetamines, Tobacco Use disorder Accidents - None Hospitalizations - see surgery SOCIAL HISTORY: Alcohol Use - socially Smoking - 1/2 pack/day--advised to quit Diet - no special diet Lifestyle - moderate stress lifestyle and single Exercise - regular Seat Belt Use - always Employer - Unemployed Illicit Drug Use - uses marijuana and prior use of meth Sexual Activity - [employer] PART[employer] Spouse-Sig Other Name - GUANAKO Miranda Spouse-Sig Other Occupation - Not involved- going back to senior care Control - FAMILY HISTORY: MENSTRUAL HISTORY: LMP Known?- Unknown, Regularity - Irregular, Age Onset Menarche - 15 PAST PREGNANCIES: Total Pregnancies - 1; Full Term Pregnancies - 0; Premature - 0; Abortions, Induced - 0; Abortions, Spontaneous - 0; Ectopics - 0; Multiple Births - 0; Living Children - 0 SURGICAL HISTORY: 1. cholecystectomy, 2019 ; Dr. Fisher - PHYSICAL EXAM BP- 118/80 Sitting, Right arm, regular cuff (Exam per Dr. Navas on 06/17/19) Weight- 197.91207 lbs Height- 64.00 inch BMI:33.89 CONSTITUTIONAL - NAD, well nourished, and well developed SKIN - No rash, lesions, or ulcers HEENT - Normocephalic, PERRLA, EOMI NECK - No nodes, no nuchal rigidity and thyroid normal size and texture LYMPH NODES - Palpation of lymph nodes in neck and groins within normal limits LUNGS - CTA x2 without wheezes, crackles or rales CARDIAC - Regular rate and rhythm without rubs, murmurs, or gallops BREAST - No dominant masses, no tenderness, no axillary adenopathy, no nipple discharge, no skin changes ABDOMEN - Without hepatosplenomegaly, distention, masses, rebound, or guarding; normal bowel sounds; no hernias EXTREMITIES - No edema or calf tenderness NEUROLOGICAL - Cranial nerves II-XII grossly intact PSYCHIATRIC - A and O to time, place, person, mood and affect ASSESSMENT/PLAN: 1. Missed Plan for suction dilation and curettage. Consent previously signed in office. Preop labs and COVID19 testing pending The visit was approximately 15 minutes in length with most of the time spent in discussion and counseling. Procedure Criteria Procedure Essential: Yes Criteria Statement: On 05/14/2019 the [facility] ([facility]) Public Order signed by [facility] Director Jagruti Alcantar M.D., regarding the Management of Non-Essential Surgeries and Procedures for the purpose of preserving Personal Protective Equipment (PPE) and critical hospital capacity and resources within [place] went into effect as of 05/15/2019 at 5:00PM. According to the [facility] Public Order: This action will remain in full force and effect until the State of Emergency declared by the Governor no longer exists or the Director of the [facility] rescinds or modifies this Order. This [facility] order stated all non-essential or elective surgeries and procedures that utilize PPE should be delayed unless there is undue risk to the current or future health of a patient. After reviewing the aforementioned [facility] Public Order and the patient's clinical case, I have determined that the scheduled procedure meets the criteria to go forward. Risk to Patient if Procedure Delayed: Threat to patient's life if surgery or procedure is delayed
[2019-07-30] VITALS (7 sets, daily range): BP systolic 87–112; BP diastolic 54–60; PULSE 71–92; RESP 15–16; TEMP -13.6–36.4; O2SAT 98–100; BMI 33.3
--- NOTE | 2019-07-30 | POC_PTH ---
PATIENT: ORLIN ROSALES LOC: [facility] U#:[id number] AGE/SX: 24/F ROOM: RE07/30/[address]: Dr. Abbie Guido MD : 1995 BED: DIS: 07/30/2019 SPEC #: [id number] RECD: 07/30/19 12:07 STATUS: ALFONZO REStefani #: [id number] DREW: 07/30/19 00:[address]: Abbie Richardson DEPT: SURGICAL PATHOLOGY RECD BY: Jimenez Alfaro ENTERED: 07/30/19 12:07 SP TYPE: PROD CONC OTHR DR: No Primary Care Phys Tissues: Product of conception, NOS Procedures: Surgery Specimen Level IV HEADER OPERATION: Dilation and evacuation PRE-OP DIAGNOSIS: Missed TISSUE SUBMITTED: Products of conception MICROSCOPIC DIAGNOSIS Endometrium, curettage: Chorionic villi, decidualized stroma and trophoblastic cells consistent with products of conception. AM:tolu 07/31/19 MICROSCOPIC DESCRIPTION Slides are reviewed. GROSS DESCRIPTION Received in fixative is one container labeled with the patient's name and designated products of conception. The specimen consists of multiple irregular fragments of pink-oscar soft tissue that in aggregate measure 10 x 10 x 1.7 cm. parts are not grossly recognized. Adult Basic Education Instructor portions are submitted in one cassette. / AM:tolu 07/30/19 TC:5 CPT: 37062
[2019-07-30] MEDS: Lactated Ringers 1,000 ML 100 ML IV (07:00)
[2019-07-30 07:16] LABS: Basophil# 0.03 X10^3/uL; Basophil% 0.4 % (0-1); Eosinophil# 0.07 X10^3/uL; Hematocrit 32.6 % (37-47); Hemoglobin 11.5 g/dL (12.0-15.0); Lymphocyte % 33.5 % (19-41); Mean Corp Hgb Conc 35.3 g/dL (32-36); Mean Corpuscular Hgb 32.8 pg (27.0-32.0); Mean Corpuscular Volume 92.9 fL (81-99); Mean Platelet Vol. 10.4 fl (6.2-12.0); Monocyte# 0.48 X10^3/uL; NRBC Flagged by Analyzer 0 % (0-5); Neutrophil # 3.97 X10^3/uL (2.7-7.7); Neutrophil % 57.8 % (47-70); Platelet Count 239 K/mm3 (150-450); RBC Distribution Width CV 12.1 % (11.6-14.6); RBC Distribution Width SD 41.5 fl (35.1-43.9); Red Blood Count 3.51 M/mm3 (4.2-5.4); White Blood Count 6.9 K/mm3 (4.4-11.0)
[2019-07-30] MEDS: Lubricating Jelly 60 GM Tube 30 GM TOPICAL (07:51)
--- NOTE | 2019-07-30 08:10 | PCM.OPRPT ---
Problem List (1) Missed Status: Acute Comment: 11wga Report of Operation Date of Procedure: 07/30/19 Pre-Operative Diagnosis: Missed Post-Operative Diagnosis: Missed Surgery/Procedure Performed:: Suction dilation and curettage Description of Surgical Findings:: Thin endometrium No evidence of retained products on US postop pullman conductor: None Type of Anesthesia:: Local MAC Anesthesiologist: Hill Avendano Specimen's removed: products of conception Estimated Blood Loss (mL): 50 Fluids Replaced: 700 ml Description of Procedure: Indications: 24yo G1 at 13+ weeks gestational age was found to have intrauterine demise measuring 11 weeks. She was counseled and opted to proceed with suction dilation and curettage. Procedural r/b/i/a were viewed. Informed consent was obtained. Procedure: Patient was brought to the operating room and sign in performed. She was placed in the dorsal supine position and MAC initiated. She was repositioned into dorsal lithotomy, perineum was prepped, straight catheterization of the bladder performed and patient was draped in sterile fashion. A bivalved speculum was placed vaginally and the cervix grasped anteriorly using a single tooth tenaculum. A paracervical block was placed to a total of 20cc of 1% lidocaine. The cervix was dilated and an 11mm curved suction curette was introduced into the uterus with rupture of membranes. Suction curettage was performed and followed by sharp curettage. US was performed intermittently to guide the procedure. Suction curettage was again performed with no further tissue retrieval and US demonstrating a thin endometrial stripe. The procedure was complete. The tenaculum was removed from the cervix with tenaculum site hemostatic and the speculum removed. The patient was placed into dorsal supine position, awakened and transferred to the recovery room without complication. Sponge counts were correct x 2. Patient tolerated the procedure well. - Complications None - Admit VTE Documentation VTE Present on Admission: No VTE Mechan Device Prophylaxis: SCD's VTE Pharm Prophylaxis ordered?: No
--- NOTE | 2019-07-30 08:20 | DCINST_ITS ---
Discharge Diet: No Restrictions Discharge Activity: Return to Normal Activity, May Shower, - - No tub bath for 1-2 weeks, no driving for 24 hours May resume sexual activity in: - - 2-4 weeks Call your doctor if you observe: Fever of 101 or Higher, Inability to urinate, Inability to have a bowel movement, Using more than one pad per hour, Shortness of breath, Chest pain, Calf discomfort, Uncontrolled pain Allergies/Adverse Reactions: Allergies No Known Allergies Allergy (Verified 07/30/19 06:45) Medications to take at Discharge Ibuprofen 600 mg PO TID PRN #30 tab 07/30/19 The following prescriptions were given: Ibuprofen 600 mg PO TID PRN #30 tab PRN Reason: Pain Score 1-10/10 Transmission Status: Pending to teextee #30 Primary Care Physician: Care Physician,No Primary [Primary Care Provider] - Test Results: Test results from this visit will be discussed in further detail at your follow- up appointment, if applicable. Please Follow Up With: Mary Jo Lao CNM - postop visit When: 1-2 weeks
== END 2019-07-30 09:37 | disposition home or self-care (01) ==
LOC: SDC 06:28 → AC 06:29
PROVIDERS: Anesthesiology; Referring Provider Obstetrics & Gynecology; Visit Provider Obstetrics & Gynecology
PROC: (CPT 59820; principal; 2019-07-30 07:15)
DX: O02.1 Missed abortion (principal); Z11.59 Encounter for screening for other viral diseases; F17.200 Nicotine dependence, unspecified, uncomplicated
CPT/HCPCS: 01965; 59820; 85025; 86850; 86900; 86901; 87635; 88305; G2023; J7120; U0003

== ENCOUNTER 2019-11-22 12:55 | Emergency (ER) | payer MEDICAID, SELFPAY ==
[2019-07-30 06:46] VITALS: BMI 33.3
[2019-11-22 12:57] VITALS: BP 127/64; PULSE 114; RESP 17; TEMP 36.3; O2SAT 100; BMI 28.9
--- NOTE | 2019-11-22 13:40 | RAD_ITS ---
STUDY: X-RAY CHEST REASON FOR EXAM: Female, 24 years old. COUGH, RIB PAIN, AND ABD PAIN X4 DAYS -- PATIENT REPORTS NO HEROIN X2 DAYS. FEELS LIKE SHE IS GOING INTO DTs TECHNIQUE: PA and lateral views of the chest. COMPARISON: Comparison is made with prior study dated 01/31/2018. FINDINGS: The lungs are clear and expanded. There is no demonstrated pleural abnormality. Normal size heart. Normal mediastinum and eve. Normal visualized pulmonary arteries. Normal visualized aortic arch and descending thoracic aorta. Normal visualized thoracic spine. Normal visualized ribs, clavicles, and shoulders. There is no demonstrated abnormality of the visualized soft tissue structures of the upper abdomen. RAD/Chest PA and Lateral IMPRESSION: Normal x-ray examination of the chest. Electronically Signed: Ad De La Rosa, at 14:21 EDT , Service support ,
== END 2019-11-22 14:36 | disposition left against medical advice (07) ==
LOC: ED 14:25
PROVIDERS: Emergency Provider Emergency Medicine; PCP Family Medicine
DX: R05 Cough (principal); R07.81 Pleurodynia; R10.9 Unspecified abdominal pain; Z53.21 Procedure and treatment not carried out due to patient leaving prior to being seen by health care provider
CPT/HCPCS: 71046